=== PATIENT | male | born 1985 | race Caucasian/White ===

== ENCOUNTER → 2017-01-03 | Outpatient (REF) | LOC: WSOH 08:37 | DX: Z02.89 Encounter for other administrative examinations (principal) ==

== ENCOUNTER 2017-08-01 14:30 | Emergency (ER) | payer OTHER ==
[~2017-08-01] VITALS: Ht 167.6 cm; Wt 84.1 kg
[2017-08-01 14:32] VITALS: BP 152/105; TEMP 98
[2017-08-01 15:02] LABS: BASO # 0.1 (0.0-0.2); BASO % 0.7 % (0.0-2.0); EOS # 0.1 (0.0-0.7); EOS % 0.9 % (0-4.0); GRAN # 6.6 (1.4-6.5); GRAN % 74.6 % (42.2-75.2); HEMATOCRIT 43.1 % (42.0-52.0); HEMOGLOBIN 15.2 g/dl (13.5-18.0); LYMPH # 1.6 (1.2-3.4); LYMPH % 18.4 % (20.0-51.0); MEAN CELL VOLUME 94 fl (80.0-100.0); MEAN CORPUSCULAR HEMOGLOBIN 33 pg (27.0-31.0); MEAN CORPUSCULAR HGB CONC 35 g/dl (33.0-37.0); MEAN PLATELET VOLUME 9.3 fl (7.4-10.4); MONO # 0.5 (0.1-0.6); MONO % 5.1 % (1.7-9.3); PLATELET COUNT 400 K/mm3 (130-400); RED BLOOD COUNT 4.58 M/mm3 (4.20-5.60); WHITE BLOOD COUNT 8.8 K/mm3 (4.8-10.8)
[2017-08-01 15:23] LABS: ADJUSTED CALCIUM 8.9 mg/dL (8.4-10.2); ALANINE AMINOTRANSFERASE 37 U/L (21-72); ALBUMIN 4.8 gm/dL (3.5-5.0); ALCOHOL(ethanol),MEDICAL 132 mg/dL; ALKALINE PHOSPHATASE 75 U/L (50-136); ANION GAP 14 mmol/L (7-16); BILIRUBIN,TOTAL 0.5 mg/dL (0.0-1.0); BLOOD UREA NITROGEN 5 mg/dL (9-20); CALCIUM 9.5 mg/dL (8.4-10.2); CARBON DIOXIDE 24 mmol/L (22-30); CHLORIDE 107 mmol/L (98-107); CREATININE, serum 0.87 mg/dL (0.66-1.25); GLUCOSE 89 mg/dL (74-106); POTASSIUM 4.2 mmol/L (3.4-5.0); SODIUM 145 mmol/L (137-145); TOTAL PROTEIN 8.2 gm/dL (6.4-8.2)
[2017-08-01 15:55] LABS: AMPHETAMINE URINE NEGATIVE; BARBITURATES URINE NEGATIVE; BENZODIAZEPINES URINE NEGATIVE; BUPRENORPHINE URINE NEGATIVE; METHADONE URINE NEGATIVE; OPIATES URINE NEGATIVE; OXYCODONE URINE NEGATIVE; PHENCYCLIDINE URINE NEGATIVE; PROPOXYPHENE URINE NEGATIVE; THC CANNABINOIDS URINE NEGATIVE; TRICYCLIC ANTIDEPRESS URINE NEGATIVE
[2017-08-01 16:04] LABS: ACETAMINOPHEN < 10 ug/mL (10-30); SALICYLATE < 1.0 mg/dL
[2017-08-01 20:05] VITALS: PULSE 88
== END 2017-08-01 19:41 | disposition home or self-care (01) ==
LOC: COL.ER 14:30
PROVIDERS: Family Medicine
DX: F43.10 Post-traumatic stress disorder, unspecified (principal); I10 Essential (primary) hypertension; F43.20 Adjustment disorder, unspecified; F41.9 Anxiety disorder, unspecified; F17.210 Nicotine dependence, cigarettes, uncomplicated

== ENCOUNTER 2017-10-22 02:05 | Emergency (ER) | payer OTHER ==
[~2017-10-22] VITALS: Ht 165.1 cm; Wt 77.3 kg
[2017-10-22 02:10] VITALS: TEMP 97.2
[2017-10-22 02:26] LABS: COLLECTION METHOD CLEAN CATCH
[2017-10-22 02:29] LABS: BASO # 0.1 (0.0-0.2); EOS # 0.3 (0.0-0.7); EOS % 2.6 % (0-4.0); GRAN # 8.3 (1.4-6.5); GRAN % 69.2 % (42.2-75.2); HEMATOCRIT 43.4 % (42.0-52.0); HEMOGLOBIN 15.3 g/dl (13.5-18.0); LYMPH # 2.4 (1.2-3.4); LYMPH % 19.8 % (20.0-51.0); MEAN CELL VOLUME 95 fl (80.0-100.0); MEAN CORPUSCULAR HEMOGLOBIN 33 pg (27.0-31.0); MEAN CORPUSCULAR HGB CONC 35 g/dl (33.0-37.0); MEAN PLATELET VOLUME 9.6 fl (7.4-10.4); MONO # 0.9 (0.1-0.6); MONO % 7.1 % (1.7-9.3); PLATELET COUNT 324 K/mm3 (130-400); RED BLOOD COUNT 4.59 M/mm3 (4.20-5.60)
[2017-10-22 02:35] LABS: PH 5 (5-8); SQUAMOUS EPITHELIAL None Seen /hpf; URINE APPEARANCE Cloudy; URINE BACTERIA None Seen /hpf; URINE BILIRUBIN Negative (NEGATIVE); URINE BLOOD 3+ (NEGATIVE); URINE COLOR Yellow; URINE GLUCOSE Negative (NEGATIVE); URINE KETONE Negative (NEGATIVE); URINE LEUKOCYTE ESTERASE Negative (NEGATIVE); URINE NITRATE Negative (NEGATIVE); URINE PROTEIN(semi-quant) 1+ (NEGATIVE); URINE RBC >50 /hpf; URINE UROBILINOGEN Negative (NEGATIVE)
[2017-10-22 02:40] LABS: ALANINE AMINOTRANSFERASE 50 U/L (21-72); ALBUMIN 4.3 gm/dL (3.5-5.0); ALKALINE PHOSPHATASE 65 U/L (50-136); ANION GAP 10 mmol/L (7-16); AST,SGOT 26 U/L (15-37); BILIRUBIN,TOTAL 0.3 mg/dL (0.0-1.0); BLOOD UREA NITROGEN 16 mg/dL (9-20); CALCIUM 9.6 mg/dL (8.4-10.2); CARBON DIOXIDE 28 mmol/L (22-30); CHLORIDE 102 mmol/L (98-107); CREATININE, serum 1.13 mg/dL (0.66-1.25); GLUCOSE 119 mg/dL (74-106); LIPASE 86 U/L (23-300); POTASSIUM 4.2 mmol/L (3.4-5.0); SODIUM 140 mmol/L (137-145); TOTAL PROTEIN 7.2 gm/dL (6.4-8.2)
[2017-10-22 02:43] LABS: C-REACTIVE PROTEIN < 0.5 mg/dL (0.0-0.9)
[2017-10-22] MEDS ORDERED: NORCO 325 MG-51 TAB PO (02:48)
[2017-10-22 04:01] VITALS: BP 119/82; PULSE 72
== END 2017-10-22 04:10 | disposition home or self-care (01) ==
LOC: COL.ER 02:05
PROVIDERS: Family Medicine
DX: N20.1 Calculus of ureter (principal)
CPT/HCPCS: J1170; J1885; J2550; J7030